=== PATIENT | male | born 1945 | race Caucasian/White ===

== ENCOUNTER 2016-10-31 10:33 | Emergency (ER) | payer MEDICARE, OTHER ==
[~2016-10-31] VITALS: Ht 167.6 cm; Wt 105.0 kg
[~2016-10-31 10:33] MED LIST: ASPI1TAB7 PO; ATEN-102 PO; CLOP75 PO; GLIP10TA6 PO; HYDR-2768 PO; INDO25 PO; ISOS60 PO; METHO500 PO; MOBI15TA PO; OMEG100037 PO; PAXI30TA7 PO; PROT40TA PO; REME45TA PO; ROSU40 PO; TERA1CAP3 PO; VITA-83 PO; VITA10002 PO; WAL-10TA2 PO; ZOLP10TA3 PO
[2016-10-31 10:34] VITALS: BP 140/68; PULSE 87; RESP 17; TEMP 98.4; O2SAT 97
--- NOTE | 2016-10-31 10:44 | PD ---
HPI . Right leg redness, itching and mild swelling for 3 days Chief Complaint: Skin Problem Time Seen by Provider: 10:44 Travel History International Travel<30 days: No Contact w/Intl Traveler<30days: No Traveled to known affect area: No History of Present Illness HPI 71-year-old male with multiple medical problems here with complaints of right lower extremity itching, redness and slight swelling for 3 days. Patient does not recall any injury or event that may have caused this irritation to his lower extremity. He reports that on Wednesday of this past week he thinks he may have had a fever chills. He thought the redness would go away, but it still present. He admits to mildly elevated blood sugars ranging in the 160s. He has no other complaints. He is accompanied by his significant other [facility] Past Medical History Arthritis: Yes (KNEES, HIPS, ANKLES, HANDS) Anxiety: Yes Depression: Yes Heart Rhythm Problems: Yes Cancer: No Cardiovascular Problems: Yes (bypass, angina) High Cholesterol: Yes Chest Pain: Yes Congestive Heart Failure: Yes Cerebrovascular Accident: Yes (cva) Diabetes: Yes Diminished Hearing: Yes Deep Vein Thrombosis: Yes (PE'S) Endocrine: Yes Gastrointestinal Disorders: Yes (PT HAS HERNIA, NO REPAIR) Hypertension: Yes Immune Disorder: No Musculoskeletal: Yes Neurologic: Yes Reproductive: No Respiratory: Yes Immunizations Current: No Myocardial Infarction: Yes ([place] 1967,1996,2001) Past Surgical History Cardiac Surgery: Yes (CABG IN 1996,1998) Coronary Artery Bypass Graft: Yes (TWICE,FIRST 3 VESSELS AND 2ND HAD 2 VESSELS) Coronary Stent: Yes Oral Surgery: Yes (TEETH EXTRACTED SURGICALLY) Other Surgery: Yes Social History Alcohol Use: Yes (OCC) Tobacco Use: No Substance Use: No Allergies-Medications (Allergen,Severity, Reaction): Coded Allergies: No Known Allergies (Verified , 02/05/15) Reported Meds & Prescriptions Reported Meds & Active Scripts Active Clindamycin (Clindamycin HCl) 300 Mg Cap 300 Mg PO TID Mobic (Meloxicam) 15 Mg Tab 15 Mg PO DAILY PRN Protonix (Pantoprazole Sodium) 40 Mg Tabdr 40 Mg PO DAILY 14 Days Indocin 25 Mg Cap (Indomethacin) 25 Mg Cap 25 Mg PO Q8HR 7 Days Decreased dosing as tolerated to BID and then QD Reported Aspirin 81 mg Tab (Aspirin) 81 Mg Tab 81 Mg PO DAILY Atenolol 50 Mg Tab 50 Mg PO DAILY Vitamin C (Calcium Ascorbate) 500 Mg Tab 500 Mg PO BID Ambien 10 Mg Tab (Zolpidem Tartrate) 10 Mg Tab 5-10 Mg PO HS MAY TAKE WHOLE TAB IF HALF TAB INEFFECTIVE Remeron 45 mg (Mirtazapine) 45 Mg Tab 45 Mg PO HS Imdur 60 Mg (Isosorbide Mononitrate) 60 Mg Tabcr 90 Mg PO DAILY Glipizide 10 Mg Tab 20 Mg PO BID TAKE BEFORE MEALS Fish Oil 1000 mg ([place]-3 Fatty Acids) 1 Cap Cap 2,000 Mg PO BID MAY STORE IN FREEZER Crestor (Rosuvastatin Calcium) 40 Mg Tab 40 Mg PO HS Terazosin Hcl (Terazosin HCl) 1 Mg Cap 1 Mg PO HS Robaxin 500 Mg Tab (Methocarbamol) 500 Mg Tab 500 Mg PO TID PRN Loratadine 10 Mg Tab 10 Mg PO DAILY Hctz (Hydrochlorothiazide) 25 Mg Tab 25 Mg PO DAILY Vitamin B12 (Cyanocobalamin) 1,000 Mcg Tab 1,000 Mcg PO DAILY Paxil (Paroxetine HCl) 30 Mg Tab 30 Mg PO DAILY Plavix (Clopidogrel Bisulfate) 75 Mg Tab 75 Mg PO DAILY Review of Systems General / Constitutional: No: Fever Eyes: No: Visual changes HENT: No: Headaches Cardiovascular: No: Chest Pain or Discomfort Respiratory: No: Shortness of Breath Gastrointestinal: No: Abdominal Pain Genitourinary: No: Dysuria Musculoskeletal: No: Pain Skin: Positive Other (right leg cellulitis), No Rash Neurologic: No: Weakness Psychiatric: No: Depression Endocrine: No: Polydipsia Hematologic/Lymphatic: No: Easy Bruising Physical Exam Narrative GENERAL: AAO x 3, no acute distress, Well-nourished, well-developed patient. SKIN: Warm and dry. No visible rashes or bruising. right lower extremity, warm to touch, erythematous, no gross edema, no excoriations or wounds, spares the foot HEAD: Normocephalic and atraumatic. EYES: No scleral icterus. No injection or drainage. ENT: No nasal drainage noted. Mucous membranes pink. Airway patent. NECK: Supple, trachea midline. No JVD. CARDIOVASCULAR: Regular rate and rhythm without murmurs, gallops, or rubs. RESPIRATORY: Breath sounds equal bilaterally. No accessory muscle use. No rhonchi or rales. GASTROINTESTINAL: Abdomen soft, non-tender, nondistended. EXTREMITIES: No cyanosis or edema. pedal pulses intact BACK: No obvious deformity. NEURO: CN II-12 intact, sensation in right LE normal PSYCH: AAO x 3, normal affect. Data Data Last Documented VS Vital Signs Date Time Temp Pulse Resp B/P Pulse Ox O2 Delivery O2 Flow Rate FiO2 10/31/16 10:34 98.4 87 17 140/68 97 MDM Medical Decision Making Medical Screen Exam Complete: Yes Emergency Medical Condition: Yes Medical Record Reviewed: Yes Differential Diagnosis Right lower extremities cellulitis, stasis dermatitis, less likely DVT Narrative Course 71-year-old male here with complaints of right lower extremities redness, swelling and itching. On examination patient appears to have a right lower extremity cellulitis that is sparing his foot. There are no evidence of open wounds, drainage or abscess formation. Case has been discussed with Dr. Zacarias, who also examined the patient. We recommend a course of antibiotics for treatment on outpatient basis. We do not recommend labs etc, as patient is afebrile, VSS. NO signs of systemic infection. Advised if any worsening of condition or return to the nearest emergency department. Follow-up with primary care provider. Patient verbalized understanding of instructions, questions were answered, and thanked me for their care. I advised them if their condition worsens, please return to the nearest emergency room for further care. Diagnosis Primary Impression: Cellulitis of right leg without foot Patient Instructions: General Instructions Additional Instructions: [place] for worsening signs of infection which include fever, increased redness , increased warmth, purulent drainage, increased swelling or streaking. If any of these develop, please go to the nearest emergency room. Please return to emergency department if your symptoms return or worsen. Follow up with your primary care provider. Take medications as prescribed. Med/Other Pt SpecificInfo: Prescription(s) given Scripts Clindamycin 300 Mg [id number] Mg PO TID #21 CAP Prov:Cara Zacarias MD 10/31/16 Disposition: 01 DISCHARGE HOME Condition: Stable Cherie Lange Oct 31, 2016 10:44
[2016-10-31] MEDS ORDERED: CLIN1CAP6 PO (10:53)
[2016-10-31] MEDS ORDERED: IPRAAER INH (11:25)
[2016-10-31] MEDS ORDERED: ASPI1TAB91 PO (11:25)
[2016-10-31] MEDS ORDERED: OMEP20TA PO (11:25)
[2016-10-31] MEDS ORDERED: CLAR10TA7 PO (11:25)
[2016-10-31] MEDS ORDERED: ALLO100 PO (11:25)
[2016-10-31] MEDS ORDERED: REME45TA PO (11:25)
[2016-10-31] MEDS ORDERED: LISI40TA PO (11:25)
[2016-10-31] MEDS ORDERED: FISH100020 PO (11:25)
[2016-10-31] MEDS ORDERED: ISOS60TA PO (11:25)
[2016-10-31] MEDS ORDERED: DICL1GEL7 TOPICAL (11:25)
[2016-10-31] MEDS ORDERED: GLUC10TA3 PO (11:25)
[2016-10-31] MEDS ORDERED: METO2.5T PO (11:25)
[2016-10-31] MEDS ORDERED: METO100T9 PO (11:25)
[2016-10-31] MEDS ORDERED: PAXI10TA2 PO (11:25)
[2016-10-31] MEDS ORDERED: NOVONP2 SQ ×2 (11:25)
[2016-10-31] MEDS ORDERED: PLAV75TA29 PO (11:25)
[2016-10-31] MEDS ORDERED: TERA2CAP3 PO (11:25)
[2016-10-31] MEDS ORDERED: FURO1TAB60 PO (11:25)
[2016-10-31] MEDS ORDERED: ROSU40 PO (11:25)
[2016-10-31] MEDS ORDERED: VITA10002 PO (11:25)
== END 2016-10-31 11:22 | disposition home or self-care (01) ==
LOC: NEPD 10:33
DX: L03.115 Cellulitis of right lower limb (principal); I50.9 Heart failure, unspecified; E11.9 Type 2 diabetes mellitus without complications; I11.0 Hypertensive heart disease with heart failure; H91.90 Unspecified hearing loss, unspecified ear; E78.00 Pure hypercholesterolemia, unspecified; Z86.718 Personal history of other venous thrombosis and embolism; I25.2 Old myocardial infarction; Z95.1 Presence of aortocoronary bypass graft; Z79.82 Long term (current) use of aspirin
CPT/HCPCS: 99283

== ENCOUNTER 2017-01-17 10:23 | Inpatient (IN) | payer OTHER ==
[~2017-01-17] VITALS: Ht 167.6 cm; Wt 106.1 kg
[~2017-01-17 10:23] MED LIST changes: +ALLO100 PO; -ASPI1TAB7 PO; +ASPI1TAB91 PO; -ATEN-102 PO; +CLAR10TA7 PO; +CLIN1CAP6 PO; -CLOP75 PO; +DICL1GEL7 TOPICAL; +FISH100020 PO; +FURO1TAB60 PO; -GLIP10TA6 PO; +GLUC10TA3 PO; -HYDR-2768 PO; -INDO25 PO; +IPRAAER INH; -ISOS60 PO; +ISOS60TA PO; +LISI40TA PO; -METHO500 PO; +METO100T9 PO; +METO2.5T PO; -MOBI15TA PO; +NOVONP2 SQ; -OMEG100037 PO; +OMEP20TA PO; +PAXI10TA2 PO; -PAXI30TA7 PO; +PLAV75TA29 PO; -PROT40TA PO; -TERA1CAP3 PO; +TERA2CAP3 PO; -VITA-83 PO; -WAL-10TA2 PO; -ZOLP10TA3 PO
[2017-01-17 10:26] VITALS: BP 165/75; PULSE 74; RESP 13; TEMP 98; O2SAT 95
[2017-01-17] MEDS ORDERED: ATOR1TAB18 PO (10:44)
[2017-01-17] MEDS ORDERED: SODIUM CHLOR 0.9% 1000 ML INJ 1,000 ML IV SCH (11:07)
--- NOTE | 2017-01-17 11:10 | PD ---
HPI Chief Complaint: Facial Pain or Swelling Time Seen by Provider: 11:00 Travel History International Travel<30 days: No Contact w/Intl Traveler<30days: No Traveled to known affect area: No History of Present Illness HPI 71-year-old male with history of coronary artery disease, CVA, hypertension, diabetes, chronic kidney disease, presents for evaluation of facial pain and swelling. Symptoms started 3-4 days ago as swelling to the left ear and since then the swelling and redness has rapidly progressed to the left cheek, nose and now starting to involve the right cheek region. He endorses pain, aching, constant, worse with palpation. Denies any facial trauma, fevers or chills. He reports chronic cough and congestion but denies any acute cough, sore throat. [facility] No other complaints at this time. PFSH Past Medical History Arthritis: Yes Anxiety: Yes Depression: Yes Heart Rhythm Problems: Yes Cancer: No Cardiac Catheterization: Yes (TRIPLE BYPASS) Cardiovascular Problems: Yes High Cholesterol: Yes Chest Pain: Yes Congestive Heart Failure: Yes Cerebrovascular Accident: Yes Coronary Artery Disease: Yes Diabetes: Yes Patient Takes Glucophage: Yes Diminished Hearing: Yes Deep Vein Thrombosis: Yes (PE'S) Endocrine: Yes Gastrointestinal Disorders: Yes (PT HAS HERNIA, NO REPAIR) Gout: Yes Hiatal Hernia: Yes Hypertension: Yes Immune Disorder: No Insomnia: Yes Musculoskeletal: Yes Neurologic: Yes Psychiatric: Yes (PTSD) Reproductive: No Respiratory: Yes Immunizations Current: No Myocardial Infarction: Yes Tetanus Vaccination: < 5 Years Influenza Vaccination: No Past Surgical History Cardiac Surgery: Yes (CABG IN 1996,1998) Coronary Artery Bypass Graft: Yes (TWICE,FIRST 3 VESSELS AND 2ND HAD 2 VESSELS) Coronary Stent: Yes Oral Surgery: Yes (TEETH EXTRACTED SURGICALLY) Other Surgery: Yes Social History Alcohol Use: Yes ("2-3 BEERS PER DAY") Tobacco Use: No Substance Use: No Allergies-Medications (Allergen,Severity, Reaction): Coded Allergies: No Known Allergies (Verified , 01/17/17) Reported Meds & Prescriptions Reported Meds & Active Scripts Active Reported Atorvastatin (Atorvastatin Calcium) 80 Mg Tab 80 Mg PO HS Terazosin (Terazosin HCl) 2 Mg Cap 2 Mg PO HS Paxil (Paroxetine HCl) 10 Mg Tab 10 Mg PO DAILY Omeprazole 20 Mg Tab 20 Mg PO DAILY Take 30 minutes before a meal Remeron (Mirtazapine) 45 Mg Tab 45 Mg PO HS Metoprolol Succinate ER 24 HR (Metoprolol Succinate) 100 Mg Tab 100 Mg PO DAILY Metolazone 2.5 Mg Tab 2.5 Mg PO EVERY OTHER DAY Take 1/2hr before furosemide Claritin (Loratadine) 10 Mg Tablet 10 Mg PO DAILY Lisinopril 40 Mg Tab 40 Mg PO DAILY Isosorbide Mononitrate ER (Isosorbide Mononitrate) 60 Mg Tab 30 Mg PO DAILY Novolin N Inj (Insulin Human NPH) 100 Unit/Ml Inj 50 Units SQ DAILY IN THE AM Novolin N Inj (Insulin Human NPH) 100 Unit/Ml Inj 55 Units SQ DAILY IN THE PM Glucotrol (Glipizide) 10 Mg Tab 10 Mg PO BID Take 30 minutes before a meal Lasix (Furosemide) 40 Mg Tab 40 Mg PO DAILY Fish Oil 1000 mg ([place]-3 Fatty Acids) 1 Cap Cap 1,000 Mg PO BID Diclofenac Topical 1% Gel 1 Applic TOPICAL QID Vitamin B-12 (Cyanocobalamin) 1,000 Mcg Tab 1,000 Mcg PO HS Plavix (Clopidogrel Bisulfate) 75 Mg Tab 75 Mg PO DAILY Aspirin Adult Low Strength (Aspirin) 81 Mg Tabdr 81 Mg PO DAILY Zyloprim (Allopurinol) 100 Mg Tab 100 Mg PO DAILY Review of Systems Except as stated in HPI: all other systems reviewed are Neg Physical Exam Narrative GENERAL: Well-developed well-nourished male in no acute distress SKIN: Warm and dry. Examination reveals induration and erythema to the left cheek, ear auricle, nose, taoism, without vesicle formation, fluctuance, drainage. Generalized tenderness to palpation. HEAD: Atraumatic. Normocephalic. EYES: Pupils equal and round. No scleral icterus. No injection or drainage. ENT: No nasal bleeding or discharge. Mucous membranes pink and moist. Skin as noted above with edema and erythema to the left ear auricle. The external ear canal itself appears normal. NECK: Trachea midline. No JVD. CARDIOVASCULAR: Regular rate and rhythm. No murmur appreciated. RESPIRATORY: No accessory muscle use. Clear to auscultation. Breath sounds equal bilaterally. GASTROINTESTINAL: Abdomen soft, non-tender, nondistended. Hepatic and splenic margins not palpable. MUSCULOSKELETAL: No obvious deformities. No edema. NEUROLOGICAL: Awake and alert. No obvious cranial nerve deficits. Motor grossly within normal limits. Normal speech. PSYCHIATRIC: Appropriate mood and affect; insight and judgment normal. Data Data Last Documented VS Vital Signs Date Time Temp Pulse Resp B/P (MAP) Pulse Ox O2 Delivery O2 Flow Rate FiO2 01/17/17 12:37 67 18 159/76 (103) 92 Room Air 01/17/17 10:26 98.0 Orders Orders Complete Blood Count With Diff (01/17/17 11:07) Comprehensive Metabolic Panel (01/17/17 11:07) Prothrombin Time / Inr (Pt) (01/17/17 11:07) Act Partial Throm Time (Ptt) (01/17/17 11:07) Lactic Acid Sepsis Protocol (01/17/17 11:07) Blood Culture (01/17/17 11:07) Ecg Monitoring (01/17/17 11:07) Iv Access Insert/Monitor (01/17/17 11:07) Oximetry (01/17/17 11:07) Oxygen Administration (01/17/17 11:07) Sodium Chlor 0.9% 1000 Ml Inj (Ns 1000 M (01/17/17 11:07) Morphine Inj (Morphine Inj) (01/17/17 11:15) Ondansetron Inj (Zofran Inj) (01/17/17 11:15) Ct Facial Bones W/O Iv Cont (01/17/17 ) Vancomycin Inj (Vancomycin Inj) (01/17/17 13:30) Ciprofloxacin 400 Mg Premix (Cipro 400 M (01/17/17 13:30) Chest, Single Ap (01/17/17 ) Admit Order (Ed Use Only) (01/17/17 14:02) Labs Laboratory Tests Test 01/17/17 11:25 01/17/17 11:30 White Blood Count 6.9 TH/MM3 Red Blood Count 4.80 MIL/MM3 Hemoglobin 14.2 GM/DL Hematocrit 42.7 % Mean Corpuscular Volume 88.9 FL Mean Corpuscular Hemoglobin 29.5 PG Mean Corpuscular Hemoglobin Concent 33.2 % Red Cell Distribution Width 15.3 % Platelet Count 180 TH/MM3 Mean Platelet Volume 7.6 FL Neutrophils (%) (Auto) 69.6 % Lymphocytes (%) (Auto) 14.9 % Monocytes (%) (Auto) 11.9 % Eosinophils (%) (Auto) 3.1 % Basophils (%) (Auto) 0.5 % Neutrophils # (Auto) 4.8 TH/MM3 Lymphocytes # (Auto) 1.0 TH/MM3 Monocytes # (Auto) 0.8 TH/MM3 Eosinophils # (Auto) 0.2 TH/MM3 Basophils # (Auto) 0.0 TH/MM3 CBC Comment DIFF FINAL Differential Comment Prothrombin Time 10.0 SEC Prothromb Time International Ratio 0.9 RATIO Activated Partial Thromboplast Time 25.3 SEC Blood Urea Nitrogen 54 MG/DL Creatinine 2.29 MG/DL Random Glucose 235 MG/DL Total Protein 6.8 GM/DL Albumin 3.1 GM/DL Calcium Level 8.6 MG/DL Alkaline Phosphatase 69 U/L Aspartate Amino Transf (AST/SGOT) 26 U/L Alanine Aminotransferase (ALT/SGPT) 42 U/L Total Bilirubin 0.8 MG/DL Sodium Level 136 MEQ/L Potassium Level 4.5 MEQ/L Chloride Level 101 MEQ/L Carbon Dioxide Level 29.0 MEQ/L Anion Gap 6 MEQ/L Estimat Glomerular Filtration Rate 28 ML/MIN Lactic Acid Level 1.3 mmol/L [facility] Medical Decision Making Medical Screen Exam Complete: Yes Emergency Medical Condition: Yes Medical Record Reviewed: Yes Differential Diagnosis Facial cellulitis, malignant otitis externa, erysipelas, less likely shingles Narrative Course The patient has what appears to be extensive facial cellulitis as well as swelling and induration to the left ear auricle, certainly concerning for malignant otitis externa given his history of diabetes. Less likely is early shingles as there is no vesicle formation and appears to be extending into the right cheek region now as well. Laboratory dysmenorrhea. BUN 54, creatinine 2.29, GFR 28 which is worse than his baseline chronic kidney disease. Therefore the CT of the face was changed to without contrast. CBC is unremarkable. Likely acid is negative. Given the rapid progression of the patient's cellulitic changes and his history of diabetes, localized infection of the face, the plan will be to admit the patient for observation for IV antibiotics. He was given IV vancomycin as well as IV ciprofloxacin for pseudomonas coverage. He is agreeable to admission. The patient was also noted to have a low oxygen saturation around 90-93% on room air, denies dyspnea, lungs are clear to auscultation, he was placed on 2 L nasal cannula and his oxygen saturation improved to 95%. Chest x-ray pending. Diagnosis Primary Impression: Facial cellulitis Additional Impression: Acute kidney injury Admitting Information Admitting Physician Requests: Observation Jeffery Lam Jan 17, 2017 11:10
[2017-01-17] MEDS ORDERED: MORPHINE SULFATE 4 MG/ML INJ IV PUSH ONE (11:15)
[2017-01-17] MEDS ORDERED: ONDANSETRON HCL 4 MG/2 ML VIAL IV PUSH ONE (11:15)
[2017-01-17 11:39] VITALS: RESP 18; O2SAT 93
[2017-01-17 11:55] LABS: AUTOMATED NEUTROPHIL # 4.8 TH/MM3 (1.8-7.7); BASOPHIL % 0.5 % (0.0-2.0); EOSINOPHIL # 0.2 TH/MM3 (0-0.4); EOSINOPHIL % 3.1 % (0.0-4.0); HEMATOCRIT 42.7 % (39.0-51.0); HEMO FLAGS DIFF FINAL; LYMPH % 14.9 % (9.0-44.0); MEAN CELL VOLUME 88.9 FL (80.0-100.0); MEAN CORPUSCULAR HEMOGLOBIN 29.5 PG (27.0-34.0); MEAN CORPUSCULAR HGB CONC 33.2 % (32.0-36.0); MONO % 11.9 % (0.0-8.0); NEUT % 69.6 % (16.0-70.0); PLATELET COUNT 180 TH/MM3 (150-450); RED CELL DISTRIBUTION WIDTH 15.3 % (11.6-17.2); WHITE BLOOD COUNT 6.9 TH/MM3 (4.0-11.0)
[2017-01-17 12:05] LABS: APTT (PATIENT) 25.3 SEC (24.3-30.1); INTERNATIONAL NORMALIZED RATIO 0.9 RATIO
[2017-01-17 12:19] LABS: ALT (GPT) 42 U/L (12-78); ANION GAP 6 MEQ/L (5-15); AST (GOT) 26 U/L (15-37); BLOOD UREA NITROGEN 54 MG/DL (7-18); CHLORIDE 101 MEQ/L (98-107); GLOMERULAR FILTRATION RATE 28 ML/MIN (>89); POTASSIUM 4.5 MEQ/L (3.5-5.1); SODIUM (NA) 136 MEQ/L (136-145)
[2017-01-17 12:22] LABS: ALKALINE PHOSPHATASE 69 U/L (45-117); TOTAL BILIRUBIN ADULT 0.8 MG/DL (0.2-1.0)
[2017-01-17 12:37] VITALS: BP 159/76; PULSE 67; RESP 18; O2SAT 92
--- NOTE | 2017-01-17 13:23 | RADRPT ---
EXAM DATE/TIME: 01/17/2017 12:55 [facility] COMPARISON: CT PULMONARY ANGIOGRAM, November 13, 2013, 14:16. INDICATIONS : Left facial swelling. RADIATION DOSE: 36.7 CTDIvol (mGy) MEDICAL HISTORY : Cardiovascular disease. Hypertension. SURGICAL HISTORY : None. ENCOUNTER: Initial ACUITY: 4 - 6 days PAIN SCORE: 7/10 LOCATION: Left facial TECHNIQUE: Volumetric scanning of the facial bones was performed. Using automated exposure control and adjustme nt of the mA and/or kV according to patient size, radiation dose was kept as low as reasonably achiev able to obtain optimal diagnostic quality images. DICOM format image data is available [email or web address] y for review and comparison. FINDINGS: ORBITS: The orbital and infraorbital osseous structures are intact. The retroconal structures have a normal configuration. No radiopaque foreign bodies are seen. NASAL BONE: The nasal bone and maxillary spine are intact ZYGOMATIC ARCHES: Symmetric without evidence of fracture. SINUSES: The maxillary, ethmoid and frontal sinuses are intact. No air-fluid levels seen. NASAL CAVITY: The nasal septum is intact and midline. The lacrimal ducts are intact. SOFT TISSUES: No radiopaque foreign bodies seen. No soft-tissue swelling is seen. INTRACRANIAL: No intracranial air seen. CRIBIFORM PLATE: Grossly intact. CONCLUSION: 1. Negative examination. Thierry Louis MD on January 17, 2017 at 13:20 Board Certified Radiologist. This report was verified electronically.
[2017-01-17] MEDS ORDERED: VANCOMYCIN INJ 1,000 MG in SODIUM CHLOR 0.9% 250 ML INJ 250 ML IV ONE (13:30)
[2017-01-17] MEDS ORDERED: CIPROFLOXACIN 400 MG PREMIX 200 ML IV ONE (13:30)
[2017-01-17 15:02] VITALS: BP 125/63; PULSE 62; RESP 18; O2SAT 95
--- NOTE | 2017-01-17 15:11 | RADRPT ---
EXAM DATE/TIME: 01/17/2017 14:47 [facility] COMPARISON: KNEE RIGHT COMPLETE (4VWS), February 05, 2015, 11:03. CHEST PA & LAT, January 26, 2015, 15:46. INDICATIONS : Short of Breath MEDICAL HISTORY : Cardiovascular disease. Hypertension. SURGICAL HISTORY : None. ENCOUNTER: Initial ACUITY: 4 - 6 days PAIN SCORE: 7/10 LOCATION: Bilateral chest FINDINGS: The heart is mildly enlarged. The patient is post median sternotomy. The superiormost sternal wire is no longer intact. The lungs are clear. The bony structures are intact. CONCLUSION: 1. Cardiomegaly. The lungs are clear. Stable compared to prior dated 01/26/15. Thierry Louis MD on January 17, 2017 at 15:10 Board Certified Radiologist. This report was verified electronically.
[2017-01-17] MEDS ORDERED: PILL SPLITTER OTHER PRN (15:15)
[2017-01-17] MEDS ORDERED: NALOXONE HCL 0.4 MG/ML AMP IV PUSH PRN (15:15)
[2017-01-17] MEDS ORDERED: ACETAMINOPHEN 325 MG TAB PO PRN ×2 (15:15)
[2017-01-17] MEDS ORDERED: SODIUM CHLORIDE 0.9% FLUSH 10 ML FLUSH IV FLUSH PRN (15:15)
[2017-01-17] MEDS ORDERED: ONDANSETRON HCL 4 MG/2 ML VIAL IVP PRN (15:15)
[2017-01-17] MEDS ORDERED: DEXTROSE 50% IN WATER 50 ML VIAL(D50) IV PUSH PRN (15:30)
[2017-01-17] MEDS ORDERED: GLUCAGON 1 MG/ML VIAL OTHER PRN (15:30)
[2017-01-17] MEDS ORDERED: Vancomycin Consult Pharmacy 1 EA OTHER SCH (15:45)
--- NOTE | 2017-01-17 15:47 | HHI.HP ---
[facility] Physician [facility] Admission Diagnosis facial cellulitis Diagnoses: Chief Complaint: Facial swelling Travel History International Travel<30 Days: No Contact w/Intl Traveler <30 Da: No Traveled to Known Affected Are: No History of Present Illness The patient is a 71-year-old male with a past medical history of CAD and diabetes who is presenting to the hospital with facial swelling. He says his symptoms started 3 or 4 days ago. He initially noticed swelling and redness around his left ear. He says he has had a severe ear infection last year which was treated with antibiotics. He says his left ear was swollen and eventually that swelling and redness started to spread across his face. He first noticed a go to his left side of his forehead and then it went to the left cheek and nose area. He also says it went down to his jaw on the left side. He describes a sore sensation throughout that side of the face. He rates his pain at a 4 out of 10 in severity. He denies any visual changes. He denies any difficulty with breathing. He says that he is swallowing and eating without problems. He says that the swelling has progressed throughout the day today. He says the pain medication he received in the emergency department did help. He denies any fever. He has not had any episodes of sweating. He did not take any medications for this at home. The patient also mentions that his legs tend to swell, with the right leg swelling more than the left leg. 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) HTN HLP Depression PE DM CKD Urinary incontinence Gout Liver problems Allergies: Coded Allergies: No Known Allergies (Verified , 01/17/17) Active Ordered Medications Current Medications Medications (Trade) Dose Ordered Sig/Nabila Route Start Time Stop Time Status Last Admin (Zyloprim) 100 mg DAILY PO 01/18/17 09:00 (Ecotrin Ec) 81 mg DAILY PO 01/18/17 09:00 (Lipitor) 80 mg HS PO 01/17/17 21:00 (Plavix) 75 mg DAILY PO 01/18/17 09:00 (Imdur) 30 mg DAILY PO 01/18/17 09:00 (Hytrin) 2 mg HS PO 01/17/17 21:00 (Toprol Xl) 100 mg DAILY PO 01/18/17 09:00 (Remeron) 45 mg HS PO 01/17/17 21:00 (Protonix) 20 mg DAILY PO 01/18/17 09:00 (Paxil) 10 mg DAILY PO 01/18/17 09:00 (NovoLIN N INJ) 20 units BID@08,17 SQ 01/17/17 17:00 (NovoLOG SUPPLEMENTAL SCALE) 1 ACHS SLIDING SCALE SQ 01/17/17 17:00 (NS Flush) 2 ml UNSCH PRN IV FLUSH 01/17/17 15:15 (NS Flush) 2 ml BID IV FLUSH 01/17/17 21:00 (Tylenol) 650 mg Q4H PRN PO 01/17/17 15:15 (Zofran Inj) 4 mg Q6H PRN IVP 01/17/17 15:15 (Heparin Inj) 5,000 units Q8H SQ 01/17/17 16:00 (Tylenol) 650 mg Q6H PRN PO 01/17/17 15:15 (Roxicodone) 10 mg Q4H PRN PO 01/17/17 15:15 (Roxicodone) 5 mg Q4H PRN PO 01/17/17 15:15 (Narcan Inj) 0.4 mg UNSCH PRN IV PUSH 01/17/17 15:15 (Bonnie-Colace) 1 tab BID PO 01/17/17 21:00 (Pill Splitter) 1 ea UNSCH PRN OTHER 01/17/17 15:15 (D50w (Vial) Inj) 50 ml UNSCH PRN IV PUSH 01/17/17 15:30 (Glucagon Inj) 1 mg UNSCH PRN OTHER 01/17/17 15:30 Vancomycin HCl 1600 mg/Sodium Chloride 516 ml @ 250 mls/hr DAILY IV 01/18/17 09:00 UNV Pharmacy Profile Note 0 ml @ 0 mls/hr UNSCH OTHER 01/17/17 15:45 UNV Family History DM CAD Social History The pt quit smoking 30 years ago. He drinks beer socially. Physical Exam Vital Signs Vital Signs Date Time Temp Pulse Resp B/P (MAP) Pulse Ox O2 Delivery O2 Flow Rate FiO2 01/17/17 15:02 62 18 125/63 (83) 95 Nasal Cannula 2.00 01/17/17 14:55 18 01/17/17 12:37 67 18 159/76 (103) 92 Room Air 01/17/17 11:39 18 93 Room Air 01/17/17 10:36 71 18 01/17/17 10:26 98.0 74 13 165/75 (105) 95 Physical Exam GENERAL: Well-developed, well-nourished male in no acute distress. SKIN: Warm and dry. Examination reveals induration and erythema to the left cheek, ear auricle, nose, protestant, without vesicle formation, fluctuance, drainage. Mild tenderness to palpation. HEAD: Atraumatic. Normocephalic. EYES: Pupils equal and round. No scleral icterus. No injection or drainage. ENT: No nasal bleeding or discharge. Mucous membranes pink and moist. Skin as noted above with edema and erythema to the left ear auricle. The external ear canal itself appears normal. Erythema noted internally. NECK: Trachea midline. No JVD. CARDIOVASCULAR: Distant heart sounds. Regular rate and rhythm. No murmur appreciated. RESPIRATORY: No accessory muscle use. Clear to auscultation. Breath sounds equal bilaterally. GASTROINTESTINAL: Abdomen soft, non-tender, nondistended. Hepatic and splenic margins not palpable. MUSCULOSKELETAL: No obvious deformities. 1+ edema in the LEs, R > L. NEUROLOGICAL: Awake and alert. No obvious cranial nerve deficits. Motor grossly within normal limits. Normal speech. PSYCHIATRIC: Appropriate mood and affect; insight and judgment normal. Laboratory Laboratory Tests Test 01/17/17 11:25 01/17/17 11:30 White Blood Count 6.9 Red Blood Count 4.80 Hemoglobin 14.2 Hematocrit 42.7 Mean Corpuscular Volume 88.9 Mean Corpuscular Hemoglobin 29.5 Mean Corpuscular Hemoglobin Concent 33.2 Red Cell Distribution Width 15.3 Platelet Count 180 Mean Platelet Volume 7.6 Neutrophils (%) (Auto) 69.6 Lymphocytes (%) (Auto) 14.9 Monocytes (%) (Auto) 11.9 Eosinophils (%) (Auto) 3.1 Basophils (%) (Auto) 0.5 Neutrophils # (Auto) 4.8 Lymphocytes # (Auto) 1.0 Monocytes # (Auto) 0.8 Eosinophils # (Auto) 0.2 Basophils # (Auto) 0.0 CBC Comment DIFF FINAL Differential Comment Prothrombin Time 10.0 Prothromb Time International Ratio 0.9 Activated Partial Thromboplast Time 25.3 Blood Urea Nitrogen 54 Creatinine 2.29 Random Glucose 235 Total Protein 6.8 Albumin 3.1 Calcium Level 8.6 Alkaline Phosphatase 69 Aspartate Amino Transf (AST/SGOT) 26 Alanine Aminotransferase (ALT/SGPT) 42 Total Bilirubin 0.8 Sodium Level 136 Potassium Level 4.5 Chloride Level 101 Carbon Dioxide Level 29.0 Anion Gap 6 Estimat Glomerular Filtration Rate 28 Lactic Acid Level 1.3 Date/Time Source Procedure Growth Status 01/17/17 11:30 Blood Peripheral Aerobic Blood Culture Pending Received 01/17/17 11:30 Blood Peripheral Anaerobic Blood Culture Pending Received Result Diagram: 01/17/17 1125 01/17/17 1125 Imaging Last Impressions Maxillofacial CT 01/17/17 0000 Signed Impressions: Service Date/Time: Tuesday, January 17, 2017 12:55 - CONCLUSION: 1. Negative examination. Thierry Louis MD Chest X-Ray 01/17/17 0000 Signed Impressions: Service Date/Time: Tuesday, January 17, 2017 14:47 - CONCLUSION: 1. Cardiomegaly. The lungs are clear. Stable compared to prior dated 01/26/15. MD Diya Franciscoi VTE Risk Assessment Caprini VTE Risk Assessment: Mod/High Risk (score >= 2) Caprini Risk Assessment Model Point Value = 1 Point Value = 2 Point Value = 3 Point Value = 5 Age 41-60 Minor surgery BMI > 25 kg/m2 Swollen legs Varicose veins or History of unexplained or recurrent spontaneous Oral contraceptives or hormone replacement Sepsis (< 1 month) Serious lung disease, including pneumonia (< 1 month) Abnormal pulmonary function Acute myocardial infarction Congestive heart failure (< 1 month) History of inflammatory bowel disease Medical patient at bed rest Age 61-74 Arthroscopic surgery Major open surgery (> 45 min) Laparoscopic surgery (> 45 min) Malignancy Confined to bed (> 72 hours) Immobilizing plaster cast Central venous access Age >= 75 History of VTE Family history of VTE Factor V Leiden Prothrombin [id number] Lupus anticoagulant Anticardiolipin antibodies Elevated serum homocysteine Heparin-induced thrombocytopenia Other congenital or acquired thrombophilia Stroke (< 1 month) Elective arthroplasty Hip, pelvis, or leg fracture Acute spinal cord injury (< 1 month) Prophylaxis Regimen Total Risk Factor Score Risk Level Prophylaxis Regimen 0-1 Low Early ambulation 2 Moderate Order ONE of the following: *Sequential Compression Device (SCD) *Heparin 5000 units SQ BID 3-4 Higher Order ONE of the following medications: *Heparin 5000 units SQ TID *Enoxaparin/Lovenox 40 mg SQ daily (WT < 150 kg, CrCl > 30 mL/min) *Enoxaparin/Lovenox 30 mg SQ daily (WT < 150 kg, CrCl > 10-29 mL/min) *Enoxaparin/Lovenox 30 mg SQ BID (WT < 150 kg, CrCl > 30 mL/min) AND/OR *Sequential Compression Device (SCD) 5 or more Highest Order ONE of the following medications: *Heparin 5000 units SQ TID (Preferred with Epidurals) *Enoxaparin/Lovenox 40 mg SQ daily (WT < 150 kg, CrCl > 30 mL/min) *Enoxaparin/Lovenox 30 mg SQ daily (WT < 150 kg, CrCl > 10-29 mL/min) *Enoxaparin/Lovenox 30 mg SQ BID (WT < 150 kg, CrCl > 30 mL/min) AND *Sequential Compression Device (SCD) Assessment and Plan Assessment and Plan Facial cellulitis Ongoing for 3-4 days prior to admission. Initially involved the left ear, but spread to the left forehead, eyelid, nose, cheek and jaw. No visual impairment or difficulty swallowing or breathing. Received IV vancomycin and Cipro in the ED. CT maxillofacial with no acute abnormalities. Exam reveals erythema and swelling. Appears similar to cellulitis vs an allergic reaction. No vesicles or purulence noted. - continue IV Cipro and IV vancomycin. Renally dosed. - check ESR and CRP. - pain control with a bowel regimen. - consult infectious disease. - blood cultures x 2. DM On insulin as an outpt. - hold home PO meds. - resume NPH BID at a lower dose. - insulin sliding scale. CAD S/p CABG x 2 and stents. Has chronic leg swelling. - hold diuretics in light of renal function. - resume other home meds. Acute on chronic renal failure Likely secondary to diuretics. - Hold diuretics and monitor BMP. PPx: Heparin Code Status Full Discussed Condition With Jeffery Lam, pt, pt's family Physician Certification 2 Midnight Certification Type: Admission for Inpatient Services Order for Inpatient Services The services are ordered in accordance with Medicare regulations or non- Medicare payer requirements, as applicable. In the case of services not specified as inpatient-only, they are appropriately provided as inpatient services in accordance with the 2-midnight benchmark. Estimated LOS (days): 2 days is the estimated time the patient will need to remain in the hospital, assuming treatment plan goals are met and no additional complications. Post-Hospital Plan: Not yet determined Jos Kurtz DO Jan 17, 2017 15:47
[2017-01-17] MEDS: INSULIN HUMAN NPH 1,000 UNITS/10 ML VIAL SQ SCH (17:00)
[2017-01-17] MEDS: INSULIN ASPART SUPPLEMENTAL SCALE SQ SCH ×2 (17:00→21:00)
[2017-01-17 17:54] VITALS: BP 135/69; PULSE 62; RESP 18; O2SAT 94
[2017-01-17] MEDS: HEPARIN SODIUM - SQ 10,000 UNITS/ML VIAL SQ SCH ×2 (17:56→23:16)
[2017-01-17 20:00] VITALS: BP 120/56; PULSE 69; RESP 18; TEMP 97.7; O2SAT 93
[2017-01-17] MEDS: DOCUSATE SODIUM 50 MG/SENNA 8.6 MG TAB PO SCH (21:00)
[2017-01-17] MEDS: ATORVASTATIN 80 MG TAB PO SCH (21:10)
[2017-01-17] MEDS: TERAZOSIN HCL 1 MG CAP PO SCH (21:10)
[2017-01-17] MEDS: MIRTAZAPINE 15 MG TAB PO SCH (21:10)
[2017-01-17] MEDS: SODIUM CHLORIDE 0.9% FLUSH 10 ML FLUSH IV FLUSH SCH (21:11)
[2017-01-18] VITALS: BP 115/59; PULSE 66; RESP 18; TEMP 97.2; O2SAT 91
[2017-01-18 07:41] LABS: AUTOMATED NEUTROPHIL # 4.1 TH/MM3 (1.8-7.7); BASOPHIL % 0.5 % (0.0-2.0); EOSINOPHIL # 0.3 TH/MM3 (0-0.4); EOSINOPHIL % 5.4 % (0.0-4.0); HEMATOCRIT 42.3 % (39.0-51.0); HEMO FLAGS DIFF FINAL; LYMPH % 16.4 % (9.0-44.0); LYMPHOCYTE # 1.1 TH/MM3 (1.0-4.8); MEAN CELL VOLUME 90.2 FL (80.0-100.0); MEAN CORPUSCULAR HEMOGLOBIN 29.7 PG (27.0-34.0); MEAN CORPUSCULAR HGB CONC 32.9 % (32.0-36.0); NEUT % 63.7 % (16.0-70.0); PLATELET COUNT 177 TH/MM3 (150-450); RED BLOOD COUNT 4.69 MIL/MM3 (4.50-5.90); RED CELL DISTRIBUTION WIDTH 15.6 % (11.6-17.2); WHITE BLOOD COUNT 6.5 TH/MM3 (4.0-11.0)
[2017-01-18 08:00] VITALS: BP 144/67; PULSE 64; RESP 18; TEMP 96.2; O2SAT 91
[2017-01-18] MEDS: INSULIN ASPART SUPPLEMENTAL SCALE SQ SCH ×4 (08:00→21:33)
[2017-01-18 08:16] LABS: ALKALINE PHOSPHATASE 63 U/L (45-117); ALT (GPT) 39 U/L (12-78); ANION GAP 6 MEQ/L (5-15); AST (GOT) 26 U/L (15-37); BICARBONATE 29.6 MEQ/L (21.0-32.0); BLOOD UREA NITROGEN 43 MG/DL (7-18); CHLORIDE 105 MEQ/L (98-107); GLOMERULAR FILTRATION RATE 32 ML/MIN (>89); POTASSIUM 4.3 MEQ/L (3.5-5.1); SODIUM (NA) 141 MEQ/L (136-145); TOTAL BILIRUBIN ADULT 0.7 MG/DL (0.2-1.0)
[2017-01-18] MEDS: ISOSORBIDE MONONITRATE 30 MG TAB PO SCH (08:31)
[2017-01-18] MEDS: DOCUSATE SODIUM 50 MG/SENNA 8.6 MG TAB PO SCH ×2 (08:31→21:00)
[2017-01-18] MEDS: ALLOPURINOL 100 MG TAB PO SCH (08:31)
[2017-01-18] MEDS: HEPARIN SODIUM - SQ 10,000 UNITS/ML VIAL SQ SCH ×3 (08:31→21:33)
[2017-01-18] MEDS: CLOPIDOGREL 75 MG TAB PO SCH (08:32)
[2017-01-18] MEDS: ASPIRIN EC 81 MG TABEC PO SCH (08:32)
[2017-01-18] MEDS: METOPROLOL SUCCINATE 50 MG EXTENDED RELEASE TAB PO SCH (08:32)
[2017-01-18] MEDS: PARoxetine HCL 20 MG TAB PO SCH (08:32)
[2017-01-18] MEDS: PANTOPRAZOLE SOD 20 MG DELAYED RELEASE TAB PO SCH (08:32)
[2017-01-18] MEDS: SODIUM CHLORIDE 0.9% FLUSH 10 ML FLUSH IV FLUSH SCH ×2 (08:33→21:34)
[2017-01-18] MEDS: INSULIN HUMAN NPH 1,000 UNITS/10 ML VIAL SQ SCH ×2 (08:33→16:41)
[2017-01-18] MEDS ORDERED: CIPROFLOXACIN 400 MG PREMIX 200 ML IV SCH (09:00)
[2017-01-18] MEDS ORDERED: VANCOMYCIN INJ 1,600 MG in SODIUM CHLORID 0.9% 500 ML INJ 500 ML IV SCH (09:00)
--- NOTE | 2017-01-18 10:43 | HHI.PR ---
Subjective Remarks The patient says that he is feeling better on the left side of his face. He does say that the redness and swelling has started to spread to the right side of his face. He denies any difficulty swallowing. He is breathing comfortably. He reports no vision changes. Objective Vitals Vital Signs Date Time Temp Pulse Resp B/P (MAP) Pulse Ox O2 Delivery O2 Flow Rate FiO2 01/18/17 08:00 96.2 64 18 144/67 (92) 91 01/18/17 00:00 97.2 66 18 115/59 (77) 91 01/17/17 20:00 97.7 69 18 120/56 (77) 93 01/17/17 17:54 62 18 135/69 (91) 94 Nasal Cannula 2.00 01/17/17 15:02 62 18 125/63 (83) 95 Nasal Cannula 2.00 01/17/17 14:55 18 01/17/17 12:37 67 18 159/76 (103) 92 Room Air 01/17/17 11:39 18 93 Room Air I/O 01/17/17 01/17/17 01/17/17 01/18/17 01/18/17 01/18/17 07:00 15:00 23:00 07:00 15:00 23:00 Intake Total 1000 ml 450 ml 200 ml Output Total 400 ml Balance 1000 ml 50 ml 200 ml Intake IV Total 1000 ml 450 ml 200 ml Output Urine Total 400 ml Result Diagram: 01/18/17 0630 01/18/17 0630 Imaging Last Impressions Maxillofacial CT 01/17/17 0000 Signed Impressions: Service Date/Time: Tuesday, January 17, 2017 12:55 - CONCLUSION: 1. Negative examination. Thierry Louis MD Chest X-Ray 01/17/17 0000 Signed Impressions: Service Date/Time: Tuesday, January 17, 2017 14:47 - CONCLUSION: 1. Cardiomegaly. The lungs are clear. Stable compared to prior dated 01/26/15. Thierry Louis MD Objective Remarks GENERAL: Well-developed, well-nourished male in no acute distress. SKIN: Warm and dry. Examination reveals induration and erythema to the left cheek, ear auricle, nose, oriental orthodox, without vesicle formation, fluctuance, drainage. Mild tenderness to palpation. Erythema has spread to the right side of face. HEAD: Atraumatic. Normocephalic. EYES: Pupils equal and round. No scleral icterus. No injection or drainage. ENT: No nasal bleeding or discharge. Mucous membranes pink and moist. Skin as noted above with edema and erythema to the left ear auricle. The external ear canal itself appears normal. Erythema noted internally. NECK: Trachea midline. No JVD. CARDIOVASCULAR: Distant heart sounds. Regular rate and rhythm. No murmur appreciated. RESPIRATORY: No accessory muscle use. Clear to auscultation. Breath sounds equal bilaterally. GASTROINTESTINAL: Abdomen soft, non-tender, nondistended. Hepatic and splenic margins not palpable. MUSCULOSKELETAL: No obvious deformities. 1+ edema in the LEs, R > L. NEUROLOGICAL: Awake and alert. No obvious cranial nerve deficits. Motor grossly within normal limits. Normal speech. PSYCHIATRIC: Appropriate mood and affect; insight and judgment normal. Medications and IVs Current Medications Medications (Trade) Dose Ordered Sig/Nabila Route Start Time Stop Time Status Last Admin (Zyloprim) 100 mg DAILY PO 01/18/17 09:00 01/18/17 08:31 (Ecotrin Ec) 81 mg DAILY PO 01/18/17 09:00 01/18/17 08:32 (Lipitor) 80 mg HS PO 01/17/17 21:00 01/17/17 21:10 (Plavix) 75 mg DAILY PO 01/18/17 09:00 01/18/17 08:32 (Imdur) 30 mg DAILY PO 01/18/17 09:00 01/18/17 08:31 (Hytrin) 2 mg HS PO 01/17/17 21:00 01/17/17 21:10 (Toprol Xl) 100 mg DAILY PO 01/18/17 09:00 01/18/17 08:32 (Remeron) 45 mg HS PO 01/17/17 21:00 01/17/17 21:10 (Protonix) 20 mg DAILY PO 01/18/17 09:00 01/18/17 08:32 (Paxil) 10 mg DAILY PO 01/18/17 09:00 01/18/17 08:32 (NovoLIN N INJ) 20 units BID@08,17 SQ 01/17/17 17:00 01/18/17 08:33 (NovoLOG SUPPLEMENTAL SCALE) 1 ACHS SLIDING SCALE SQ 01/17/17 17:00 (NS Flush) 2 ml UNSCH PRN IV FLUSH 01/17/17 15:15 (NS Flush) 2 ml BID IV FLUSH 01/17/17 21:00 01/18/17 08:33 (Tylenol) 650 mg Q4H PRN PO 01/17/17 15:15 (Zofran Inj) 4 mg Q6H PRN IVP 01/17/17 15:15 (Heparin Inj) 5,000 units Q8H SQ 01/17/17 16:00 01/18/17 08:31 (Tylenol) 650 mg Q6H PRN PO 01/17/17 15:15 (Roxicodone) 10 mg Q4H PRN PO 01/17/17 15:15 (Roxicodone) 5 mg Q4H PRN PO 01/17/17 15:15 (Narcan Inj) 0.4 mg UNSCH PRN IV PUSH 01/17/17 15:15 (Bonnie-Colace) 1 tab BID PO 01/17/17 21:00 01/18/17 08:31 (Pill Splitter) 1 ea UNSCH PRN OTHER 01/17/17 15:15 (D50w (Vial) Inj) 50 ml UNSCH PRN IV PUSH 01/17/17 15:30 (Glucagon Inj) 1 mg UNSCH PRN OTHER 01/17/17 15:30 Pharmacy Profile Note 0 ml @ 0 mls/hr UNSCH OTHER 01/17/17 15:45 Vancomycin HCl 1000 mg/Sodium Chloride 250 ml @ 250 mls/hr Q24H IV 01/18/17 15:00 Miscellaneous Information SPECIFIC LAB TO BE DRAWN:[facility]... ONCE ONCE .XX 01/20/17 14:45 01/20/17 14:46 (SoluMEDROL INJ) 125 mg ONCE ONCE IV PUSH 01/18/17 10:45 01/18/17 10:46 UNV (Benadryl Inj) 50 mg ONCE ONCE IV PUSH 01/18/17 10:45 01/18/17 10:46 UNV (Deltasone) 50 mg DAILY PO 01/19/17 09:00 UNV A/P Assessment and Plan Facial cellulitis Ongoing for 3-4 days prior to admission. Initially involved the left ear, but spread to the left forehead, eyelid, nose, cheek and jaw. No visual impairment or difficulty swallowing or breathing. Received IV vancomycin and Cipro in the ED. CT maxillofacial with no acute abnormalities. Exam reveals erythema and swelling. Appears similar to cellulitis vs an allergic reaction. No vesicles or purulence noted. Discussed with ID, possible psoriasis component. ESR 28, CRP 3. - continue IV vancomycin, renally dosed. D/c Cipro. - pain control with a bowel regimen. - follow up with infectious disease. - blood cultures x 2. - trial of steroids and Benadryl. DM On insulin as an outpt. Well controlled. - hold home PO meds. - resume NPH BID at a lower dose. - insulin sliding scale. CAD S/p CABG x 2 and stents. Has chronic leg swelling. - hold diuretics in light of renal function. - resume other home meds. Acute on chronic renal failure Likely secondary to diuretics. - Hold diuretics and monitor BMP. PPx: Heparin Discharge Planning Awaiting improvement Jos Kurtz DO Jan 18, 2017 10:42
--- NOTE | 2017-01-18 11:13 | PD.ID.CON ---
History of Present Illness Service ID Consult Requested By Reason for Consult Evaluation and Mment of facial cellulitis. 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 Also PMHx of CAD and diabetes who is presenting to the hospital with facial swelling. He says his symptoms started 3 or 4 days ago. He initially noticed swelling and redness around his left ear. He says he has had a severe ear infection last year which was treated with antibiotics. He says his left ear was swollen and eventually that swelling and redness started to spread across his face. He first noticed a go to his left side of his forehead and then it went to the left cheek and nose area. He also says it went down to his jaw on the left side. He describes a sore sensation throughout that side of the face. He rates his pain at a 4 out of 10 in severity. He denies any visual changes. He denies any difficulty with breathing. He says that he is swallowing and eating without problems. He says that the swelling has progressed throughout the day today. He says the pain medication he received in the emergency department did help. He denies any fever. He has not had any episodes of sweating. He did not take any medications for this at home. The patient also mentions that his legs tend to swell, with the right leg swelling more than the left leg. Overnight swelling and erythema spread to involve right side of face. ID consulted for evaluation and MMent of bilateral facial cellulitis. 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) HTN HLP Depression PE DM CKD Urinary incontinence Gout Liver problems Past Surgical History DM CAD Reported Medications I attest I obtained, reviewed or updated home meds and current meds (name, dose , route, freq of meds) Reported Meds & Active Scripts Active Reported Atorvastatin (Atorvastatin Calcium) 80 Mg Tab 80 Mg PO HS Terazosin (Terazosin HCl) 2 Mg Cap 2 Mg PO HS Paxil (Paroxetine HCl) 10 Mg Tab 10 Mg PO DAILY Omeprazole 20 Mg Tab 20 Mg PO DAILY Take 30 minutes before a meal Remeron (Mirtazapine) 45 Mg Tab 45 Mg PO HS Metoprolol Succinate ER 24 HR (Metoprolol Succinate) 100 Mg Tab 100 Mg PO DAILY Metolazone 2.5 Mg Tab 2.5 Mg PO EVERY OTHER DAY Take 1/2hr before furosemide Claritin (Loratadine) 10 Mg Tablet 10 Mg PO DAILY Lisinopril 40 Mg Tab 40 Mg PO DAILY Isosorbide Mononitrate ER (Isosorbide Mononitrate) 60 Mg Tab 30 Mg PO DAILY Novolin N Inj (Insulin Human NPH) 100 Unit/Ml Inj 50 Units SQ DAILY IN THE AM Novolin N Inj (Insulin Human NPH) 100 Unit/Ml Inj 55 Units SQ DAILY IN THE PM Glucotrol (Glipizide) 10 Mg Tab 10 Mg PO BID Take 30 minutes before a meal Lasix (Furosemide) 40 Mg Tab 40 Mg PO DAILY Fish Oil 1000 mg ([place]-3 Fatty Acids) 1 Cap Cap 1,000 Mg PO BID Diclofenac Topical 1% Gel 1 Applic TOPICAL QID Vitamin B-12 (Cyanocobalamin) 1,000 Mcg Tab 1,000 Mcg PO HS Plavix (Clopidogrel Bisulfate) 75 Mg Tab 75 Mg PO DAILY Aspirin Adult Low Strength (Aspirin) 81 Mg Tabdr 81 Mg PO DAILY Zyloprim (Allopurinol) 100 Mg Tab 100 Mg PO DAILY Active Ordered Medications Current Medications Medications (Trade) Dose Ordered Sig/Nabila Route Start Time Stop Time Status Last Admin (Zyloprim) 100 mg DAILY PO 01/18/17 09:00 01/18/17 08:31 (Ecotrin Ec) 81 mg DAILY PO 01/18/17 09:00 01/18/17 08:32 (Lipitor) 80 mg HS PO 01/17/17 21:00 01/17/17 21:10 (Plavix) 75 mg DAILY PO 01/18/17 09:00 01/18/17 08:32 (Imdur) 30 mg DAILY PO 01/18/17 09:00 01/18/17 08:31 (Hytrin) 2 mg HS PO 01/17/17 21:00 01/17/17 21:10 (Toprol Xl) 100 mg DAILY PO 01/18/17 09:00 01/18/17 08:32 (Remeron) 45 mg HS PO 01/17/17 21:00 01/17/17 21:10 (Protonix) 20 mg DAILY PO 01/18/17 09:00 01/18/17 08:32 (Paxil) 10 mg DAILY PO 01/18/17 09:00 01/18/17 08:32 (NovoLOG SUPPLEMENTAL SCALE) 1 ACHS SLIDING SCALE SQ 01/17/17 17:00 (NS Flush) 2 ml UNSCH PRN IV FLUSH 01/17/17 15:15 (NS Flush) 2 ml BID IV FLUSH 01/17/17 21:00 01/18/17 08:33 (Tylenol) 650 mg Q4H PRN PO 01/17/17 15:15 (Zofran Inj) 4 mg Q6H PRN IVP 01/17/17 15:15 (Heparin Inj) 5,000 units Q8H SQ 01/17/17 16:00 01/18/17 08:31 (Tylenol) 650 mg Q6H PRN PO 01/17/17 15:15 (Roxicodone) 10 mg Q4H PRN PO 01/17/17 15:15 (Roxicodone) 5 mg Q4H PRN PO 01/17/17 15:15 (Narcan Inj) 0.4 mg UNSCH PRN IV PUSH 01/17/17 15:15 (Bonnie-Colace) 1 tab BID PO 01/17/17 21:00 01/18/17 08:31 (Pill Splitter) 1 ea UNSCH PRN OTHER 01/17/17 15:15 (D50w (Vial) Inj) 50 ml UNSCH PRN IV PUSH 01/17/17 15:30 (Glucagon Inj) 1 mg UNSCH PRN OTHER 01/17/17 15:30 Pharmacy Profile Note 0 ml @ 0 mls/hr UNSCH OTHER 01/17/17 15:45 Vancomycin HCl 1000 mg/Sodium Chloride 250 ml @ 250 mls/hr Q24H IV 01/18/17 15:00 Miscellaneous Information SPECIFIC LAB TO BE DRAWN:[facility]... ONCE ONCE .XX 01/20/17 14:45 01/20/17 14:46 (Deltasone) 50 mg DAILY PO 01/19/17 09:00 (NovoLIN N INJ) 15 units BID@08,17 SQ 01/18/17 17:00 Family History Reviewed and NC to current ID problems. Social History The pt quit smoking 30 years ago. He drinks beer socially. Physical Exam Vital Signs Vital Signs Date Time Temp Pulse Resp B/P (MAP) Pulse Ox O2 Delivery O2 Flow Rate FiO2 01/18/17 08:00 96.2 64 18 144/67 (92) 91 01/18/17 00:00 97.2 66 18 115/59 (77) 91 01/17/17 20:00 97.7 69 18 120/56 (77) 93 01/17/17 17:54 62 18 135/69 (91) 94 Nasal Cannula 2.00 01/17/17 15:02 62 18 125/63 (83) 95 Nasal Cannula 2.00 01/17/17 14:55 18 01/17/17 12:37 67 18 159/76 (103) 92 Room Air 01/17/17 11:39 18 93 Room Air Physical Exam GENERAL: This is a well-nourished, well-developed patient, in no apparent distress. SKIN: No rashes, ecchymoses or lesions. Cool and dry. HEAD: Atraumatic. Normocephalic. No temporal or scalp tenderness. EYES: Pupils equal round and reactive. Extraocular motions intact. No scleral icterus. No injection or drainage. Face: Bilateral facial erythema, induration. Induration most marked on the pinna of the left external ear. Involves bilateral cheeks and to some extent the forehead right above the eyebrows. His scalp, post auricular area has areas of psoriatic patches and he was scratching off and on during my conversation. ENT: Nose without bleeding, purulent drainage or septal hematoma. Throat without erythema, tonsillar hypertrophy or exudate. Uvula midline. Airway patent. NECK: Trachea midline. Supple, nontender, no meningeal signs. CARDIOVASCULAR: Regular rate and rhythm without murmurs, gallops, or rubs. RESPIRATORY: Clear to auscultation. Breath sounds equal bilaterally. No wheezes , rales, or rhonchi. GASTROINTESTINAL: Abdomen soft, non-tender, nondistended. MUSCULOSKELETAL: Extremities without clubbing, cyanosis, or edema. NEUROLOGICAL: Awake and alert. Non focal Psych cooperative IV line sites with no e.o infection. Laboratory Laboratory Tests Test 01/17/17 11:25 01/17/17 11:30 01/17/17 14:25 01/18/17 06:30 White Blood Count 6.9 6.5 Red Blood Count 4.80 4.69 Hemoglobin 14.2 13.9 Hematocrit 42.7 42.3 Mean Corpuscular Volume 88.9 90.2 Mean Corpuscular Hemoglobin 29.5 29.7 Mean Corpuscular Hemoglobin Concent 33.2 32.9 Red Cell Distribution Width 15.3 15.6 Platelet Count 180 177 Mean Platelet Volume 7.6 7.5 Neutrophils (%) (Auto) 69.6 63.7 Lymphocytes (%) (Auto) 14.9 16.4 Monocytes (%) (Auto) 11.9 14.0 Eosinophils (%) (Auto) 3.1 5.4 Basophils (%) (Auto) 0.5 0.5 Neutrophils # (Auto) 4.8 4.1 Lymphocytes # (Auto) 1.0 1.1 Monocytes # (Auto) 0.8 0.9 Eosinophils # (Auto) 0.2 0.3 Basophils # (Auto) 0.0 0.0 CBC Comment DIFF FINAL DIFF FINAL Differential Comment Prothrombin Time 10.0 Prothromb Time International Ratio 0.9 Activated Partial Thromboplast Time 25.3 Blood Urea Nitrogen 54 43 Creatinine 2.29 2.08 Random Glucose 235 96 Total Protein 6.8 6.2 Albumin 3.1 2.7 Calcium Level 8.6 8.6 Alkaline Phosphatase 69 63 Aspartate Amino Transf (AST/SGOT) 26 26 Alanine Aminotransferase (ALT/SGPT) 42 39 Total Bilirubin 0.8 0.7 Sodium Level 136 141 Potassium Level 4.5 4.3 Chloride Level 101 105 Carbon Dioxide Level 29.0 29.6 Anion Gap 6 6 Estimat Glomerular Filtration Rate 28 32 Lactic Acid Level 1.3 Erythrocyte Sedimentation Rate 28 C-Reactive Protein 3.00 Date/Time Source Procedure Growth Status 01/17/17 11:30 Blood Peripheral Aerobic Blood Culture - Preliminary NO GROWTH IN 1 DAY Resulted 01/17/17 11:30 Blood Peripheral Anaerobic Blood Culture - Preliminary NO GROWTH IN 1 DAY Resulted Result Diagram: 01/18/1730 01/18/1730 Imaging Last Impressions Maxillofacial CT 01/17/17 0000 Signed Impressions: Service Date/Time: Tuesday, January 17, 2017 12:55 - CONCLUSION: 1. Negative examination. Thierry Louis MD Chest X-Ray 01/17/17 0000 Signed Impressions: Service Date/Time: Tuesday, January 17, 2017 14:47 - CONCLUSION: 1. Cardiomegaly. The lungs are clear. Stable compared to prior dated 01/26/15. Thierry Louis MD Assessment and Plan Assessment and Plan Bilateral facial cellulitis Left ear pinna cellulitis. Psoriasis Recs Continue Vanco IV DC Cipro Steroids oral or IV inflammation component. Will follow along ayanna Herrera. Tianna Winter MD Jan 18, 2017 11:13
[2017-01-18] MEDS ORDERED: methylPREDNISolone SOD SUCC 125 MG/2 ML VIAL IV PUSH ONE (11:15)
[2017-01-18] MEDS ORDERED: diphenhydrAMINE HCL 50 MG/ML VIAL IV PUSH ONE (11:15)
[2017-01-18 12:00] VITALS: BP 138/70; PULSE 64; RESP 18; TEMP 96.5; O2SAT 90
[2017-01-18] MEDS ORDERED: VANCOMYCIN 1,000 MG/NS 250 ML IV SCH ×2 (15:00)
[2017-01-18 16:00] VITALS: BP 175/83; PULSE 74; RESP 18; TEMP 95.9; O2SAT 92
[2017-01-18 20:00] VITALS: BP 161/70; PULSE 67; RESP 18; TEMP 97.1; O2SAT 93
[2017-01-18] MEDS: TERAZOSIN HCL 1 MG CAP PO SCH (21:34)
[2017-01-18] MEDS: ATORVASTATIN 80 MG TAB PO SCH (21:34)
[2017-01-18] MEDS: MIRTAZAPINE 15 MG TAB PO SCH (21:34)
[2017-01-19] VITALS: BP 146/66; PULSE 64; RESP 18; TEMP 97.3; O2SAT 93
[2017-01-19 08:00] VITALS: BP 184/80; PULSE 55; RESP 17; TEMP 97.5; O2SAT 96
[2017-01-19] MEDS: INSULIN HUMAN NPH 1,000 UNITS/10 ML VIAL SQ SCH (08:05)
[2017-01-19] MEDS: SODIUM CHLORIDE 0.9% FLUSH 10 ML FLUSH IV FLUSH SCH (08:05)
[2017-01-19] MEDS: HEPARIN SODIUM - SQ 10,000 UNITS/ML VIAL SQ SCH (08:05)
[2017-01-19] MEDS: INSULIN ASPART SUPPLEMENTAL SCALE SQ SCH ×2 (08:05→12:14)
[2017-01-19] MEDS: ASPIRIN EC 81 MG TABEC PO SCH (08:06)
[2017-01-19] MEDS: METOPROLOL SUCCINATE 50 MG EXTENDED RELEASE TAB PO SCH (08:06)
[2017-01-19] MEDS: PARoxetine HCL 20 MG TAB PO SCH (08:06)
[2017-01-19] MEDS: DOCUSATE SODIUM 50 MG/SENNA 8.6 MG TAB PO SCH (08:06)
[2017-01-19] MEDS: ALLOPURINOL 100 MG TAB PO SCH (08:06)
[2017-01-19] MEDS: ISOSORBIDE MONONITRATE 30 MG TAB PO SCH (08:06)
[2017-01-19] MEDS: PANTOPRAZOLE SOD 20 MG DELAYED RELEASE TAB PO SCH (08:06)
[2017-01-19] MEDS: CLOPIDOGREL 75 MG TAB PO SCH (08:07)
[2017-01-19] MEDS ORDERED: predniSONE 50 MG TAB PO SCH (09:00)
[2017-01-19 09:01] LABS: MAGNESIUM 2.3 MG/DL (1.5-2.5); POTASSIUM 4.4 MEQ/L (3.5-5.1)
--- NOTE | 2017-01-19 10:31 | HHI.IDPN ---
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 Also PMHx of CAD and diabetes who is presenting to the hospital with facial swelling. He says his symptoms started 3 or 4 days ago. He initially noticed swelling and redness around his left ear. He says he has had a severe ear infection last year which was treated with antibiotics. He says his left ear was swollen and eventually that swelling and redness started to spread across his face. He first noticed a go to his left side of his forehead and then it went to the left cheek and nose area. He also says it went down to his jaw on the left side. He describes a sore sensation throughout that side of the face. He rates his pain at a 4 out of 10 in severity. He denies any visual changes. He denies any difficulty with breathing. He says that he is swallowing and eating without problems. He says that the swelling has progressed throughout the day today. He says the pain medication he received in the emergency department did help. He denies any fever. He has not had any episodes of sweating. He did not take any medications for this at home. The patient also mentions that his legs tend to swell, with the right leg swelling more than the left leg. Overnight swelling and erythema spread to involve right side of face. ID consulted for evaluation and MMent of bilateral facial cellulitis. Overnight events reviewed. No fever No rash No diarrhea facial puffiness reduced, ear pinna with erythema (reduced induration and tense skin). Wrinkling of skin noted on face. Antibiotics Vanco IV Lines Line sites with no e.o infection. Past Medical History reviewed Allergies: Coded Allergies: No Known Allergies (Verified , 01/17/17) Objective . Vital Signs Date Time Temp Pulse Resp B/P (MAP) Pulse Ox O2 Delivery O2 Flow Rate FiO2 01/19/17 08:00 97.5 55 17 184/80 (114) 96 01/19/17 00:00 97.3 64 18 146/66 (92) 93 01/18/17 20:00 97.1 67 18 161/70 (100) 93 01/18/17 16:00 95.9 74 18 175/83 (113) 92 01/18/17 12:00 96.5 64 18 138/70 (92) 90 . Laboratory Tests Test 01/17/17 11:25 01/17/17 14:25 01/18/17 06:30 White Blood Count 6.9 TH/MM3 6.5 TH/MM3 Red Blood Count 4.80 MIL/MM3 4.69 MIL/MM3 Hemoglobin 14.2 GM/DL 13.9 GM/DL Hematocrit 42.7 % 42.3 % Mean Corpuscular Volume 88.9 FL 90.2 FL Mean Corpuscular Hemoglobin 29.5 PG 29.7 PG Mean Corpuscular Hemoglobin Concent 33.2 % 32.9 % Red Cell Distribution Width 15.3 % 15.6 % Platelet Count 180 TH/MM3 177 TH/MM3 Mean Platelet Volume 7.6 FL 7.5 FL Neutrophils (%) (Auto) 69.6 % 63.7 % Lymphocytes (%) (Auto) 14.9 % 16.4 % Monocytes (%) (Auto) 11.9 % 14.0 % Eosinophils (%) (Auto) 3.1 % 5.4 % Basophils (%) (Auto) 0.5 % 0.5 % Neutrophils # (Auto) 4.8 TH/MM3 4.1 TH/MM3 Lymphocytes # (Auto) 1.0 TH/MM3 1.1 TH/MM3 Monocytes # (Auto) 0.8 TH/MM3 0.9 TH/MM3 Eosinophils # (Auto) 0.2 TH/MM3 0.3 TH/MM3 Basophils # (Auto) 0.0 TH/MM3 0.0 TH/MM3 CBC Comment DIFF FINAL DIFF FINAL Differential Comment Erythrocyte Sedimentation Rate 28 mm/hr Laboratory Tests Test 01/17/17 11:25 01/17/17 11:30 01/17/17 14:25 01/18/17 06:30 Blood Urea Nitrogen 54 MG/DL 43 MG/DL Creatinine 2.29 MG/DL 2.08 MG/DL Random Glucose 235 MG/DL 96 MG/DL Total Protein 6.8 GM/DL 6.2 GM/DL Albumin 3.1 GM/DL 2.7 GM/DL Calcium Level 8.6 MG/DL 8.6 MG/DL Alkaline Phosphatase 69 U/L 63 U/L Aspartate Amino Transf (AST/SGOT) 26 U/L 26 U/L Alanine Aminotransferase (ALT/SGPT) 42 U/L 39 U/L Total Bilirubin 0.8 MG/DL 0.7 MG/DL Sodium Level 136 MEQ/L 141 MEQ/L Potassium Level 4.5 MEQ/L 4.3 MEQ/L Chloride Level 101 MEQ/L 105 MEQ/L Carbon Dioxide Level 29.0 MEQ/L 29.6 MEQ/L Anion Gap 6 MEQ/L 6 MEQ/L Estimat Glomerular Filtration Rate 28 ML/MIN 32 ML/MIN Lactic Acid Level 1.3 mmol/L C-Reactive Protein 3.00 MG/DL Test 01/19/17 07:39 Blood Urea Nitrogen 41 MG/DL Creatinine 2.18 MG/DL Random Glucose 233 MG/DL Calcium Level 9.3 MG/DL Magnesium Level 2.3 MG/DL Sodium Level 140 MEQ/L Potassium Level 4.4 MEQ/L Chloride Level 104 MEQ/L Carbon Dioxide Level 30.0 MEQ/L Anion Gap 6 MEQ/L Estimat Glomerular Filtration Rate 30 ML/MIN Microbiology Date/Time Source Procedure Growth Status 01/17/17 11:30 Blood Peripheral Aerobic Blood Culture - Preliminary NO GROWTH IN 1 DAY Resulted 01/17/17 11:30 Blood Peripheral Anaerobic Blood Culture - Preliminary NO GROWTH IN 1 DAY Resulted 01/17/17 11:25 Blood Peripheral Aerobic Blood Culture - Preliminary NO GROWTH IN 1 DAY Resulted 01/17/17 11:25 Blood Peripheral Anaerobic Blood Culture - Preliminary NO GROWTH IN 1 DAY Resulted Imaging Last Impressions Maxillofacial CT 01/17/17 0000 Signed Impressions: Service Date/Time: Tuesday, January 17, 2017 12:55 - CONCLUSION: 1. Negative examination. Thierry Louis MD Chest X-Ray 01/17/17 0000 Signed Impressions: Service Date/Time: Tuesday, January 17, 2017 14:47 - CONCLUSION: 1. Cardiomegaly. The lungs are clear. Stable compared to prior dated 01/26/15. Thierry Louis MD Physical Exam GENERAL: This is a well-nourished, well-developed patient, in no apparent distress. SKIN: No rashes, ecchymoses or lesions. Cool and dry. HEAD: Atraumatic. Normocephalic. No temporal or scalp tenderness. EYES: Pupils equal round and reactive. Extraocular motions intact. No scleral icterus. No injection or drainage. Face: Bilateral facial erythema, induration much reduced. Induration on the pinna of the left external ear much reduced. ENT: Nose without bleeding, purulent drainage or septal hematoma. Throat without erythema, tonsillar hypertrophy or exudate. Uvula midline. Airway patent. NECK: Trachea midline. Supple, nontender, no meningeal signs. CARDIOVASCULAR: Regular rate and rhythm without murmurs, gallops, or rubs. RESPIRATORY: Clear to auscultation. Breath sounds equal bilaterally. No wheezes , rales, or rhonchi. GASTROINTESTINAL: Abdomen soft, non-tender, nondistended. MUSCULOSKELETAL: Extremities without clubbing, cyanosis, or edema. NEUROLOGICAL: Awake and alert. Non focal Psych cooperative IV line sites with no e.o infection. Assessment & Plan Remarks Bilateral facial cellulitis Left ear pinna cellulitis. Psoriasis Recs DC Vanco IV Oral steroids short taper. ok to discharge from ID standpoint on oral doxy 100 mg po bid x 7 more days. ayanna Herrera. Will sign off please call back if any change in clinical condition. Tianna Winetr MD Jan 19, 2017 10:31
[2017-01-19] MEDS ORDERED: DOXY100C PO (10:38)
[2017-01-19] MEDS ORDERED: PRED50 PO (10:43)
--- NOTE | 2017-01-19 10:44 | HHI.DCPOC ---
Discharge Care Plan Diagnosis: (1) Facial cellulitis (2) Acute kidney injury (3) Diabetes Goals to Promote Your Health * To prevent worsening of your condition and complications * To maintain your health at the optimal level Directions to Meet Your Goals Take your medications as prescribed Follow your dietary instruction Follow activity as directed Keep your appointments as scheduled Take your immunizations and boosters as scheduled If your symptoms worsen call your PCP, if no PCP go to Urgent Care Center or Emergency Room Smoking is Dangerous to Your Health. Avoid second hand smoke Call the 24-hour hour crisis hotline for domestic abuse at Jos Kurtz DO Jan 19, 2017 10:44
[2017-01-19] MEDS ORDERED: LISINOPRIL 20 MG TAB PO SCH (10:45)
--- NOTE | 2017-01-19 10:49 | HHI.PR ---
Subjective Remarks Patient was feeling a lot better and wanted to go home. He said the swelling was much improved. He said that his blood pressure was high this morning because he was walking around right before they took it. No acute complaints. Discussed with nursing. Objective Vitals Vital Signs Date Time Temp Pulse Resp B/P (MAP) Pulse Ox O2 Delivery O2 Flow Rate FiO2 01/19/17 08:00 97.5 55 17 184/80 (114) 96 01/19/17 00:00 97.3 64 18 146/66 (92) 93 01/18/17 20:00 97.1 67 18 161/70 (100) 93 01/18/17 16:00 95.9 74 18 175/83 (113) 92 01/18/17 12:00 96.5 64 18 138/70 (92) 90 I/O 01/18/17 01/18/17 01/18/17 01/19/17 01/19/17 01/19/17 07:00 15:00 23:00 07:00 15:00 23:00 Intake Total 200 ml 1550 ml 240 ml Balance 200 ml 1550 ml 240 ml Intake Oral 1300 ml 240 ml IV Total 200 ml 250 ml # Voids 5 3 # Bowel Movements 1 0 Result Diagram: 01/18/17 0630 01/19/17 0739 Imaging Last Impressions Maxillofacial CT 01/17/17 0000 Signed Impressions: Service Date/Time: Tuesday, January 17, 2017 12:55 - CONCLUSION: 1. Negative examination. Thierry Louis MD Chest X-Ray 01/17/17 0000 Signed Impressions: Service Date/Time: Tuesday, January 17, 2017 14:47 - CONCLUSION: 1. Cardiomegaly. The lungs are clear. Stable compared to prior dated 01/26/15. Thierry Louis MD Objective Remarks GENERAL: Well-developed, well-nourished male in no acute distress. SKIN: Warm and dry. Examination reveals erythema to the left cheek, ear auricle , nose, holiness, without vesicle formation, fluctuance, drainage. Erythema has spread to the right side of face. Swelling is improved. HEAD: Atraumatic. Normocephalic. EYES: Pupils equal and round. No scleral icterus. No injection or drainage. ENT: No nasal bleeding or discharge. Mucous membranes pink and moist. Skin as noted above with edema and erythema to the left ear auricle. The external ear canal itself appears normal. Erythema noted internally. NECK: Trachea midline. No JVD. CARDIOVASCULAR: Distant heart sounds. Regular rate and rhythm. No murmur appreciated. RESPIRATORY: No accessory muscle use. Clear to auscultation. Breath sounds equal bilaterally. GASTROINTESTINAL: Abdomen soft, non-tender, nondistended. Hepatic and splenic margins not palpable. MUSCULOSKELETAL: No obvious deformities. 1+ edema in the LEs, R > L. NEUROLOGICAL: Awake and alert. No obvious cranial nerve deficits. Motor grossly within normal limits. Normal speech. PSYCHIATRIC: Appropriate mood and affect; insight and judgment normal. Medications and IVs Current Medications Medications (Trade) Dose Ordered Sig/Nabila Route Start Time Stop Time Status Last Admin (Zyloprim) 100 mg DAILY PO 01/18/17 09:00 01/19/17 08:06 (Ecotrin Ec) 81 mg DAILY PO 01/18/17 09:00 01/19/17 08:06 (Lipitor) 80 mg HS PO 01/17/17 21:00 01/18/17 21:34 (Plavix) 75 mg DAILY PO 01/18/17 09:00 01/19/17 08:07 (Imdur) 30 mg DAILY PO 01/18/17 09:00 01/19/17 08:06 (Hytrin) 2 mg HS PO 01/17/17 21:00 01/18/17 21:34 (Toprol Xl) 100 mg DAILY PO 01/18/17 09:00 01/19/17 08:06 (Remeron) 45 mg HS PO 01/17/17 21:00 01/18/17 21:34 (Protonix) 20 mg DAILY PO 01/18/17 09:00 01/19/17 08:06 (Paxil) 10 mg DAILY PO 01/18/17 09:00 01/19/17 08:06 (NovoLOG SUPPLEMENTAL SCALE) 1 ACHS SLIDING SCALE SQ 01/17/17 17:00 01/19/17 08:05 (NS Flush) 2 ml UNSCH PRN IV FLUSH 01/17/17 15:15 (NS Flush) 2 ml BID IV FLUSH 01/17/17 21:00 01/19/17 08:05 (Tylenol) 650 mg Q4H PRN PO 01/17/17 15:15 (Zofran Inj) 4 mg Q6H PRN IVP 01/17/17 15:15 (Heparin Inj) 5,000 units Q8H SQ 01/17/17 16:00 01/19/17 08:05 (Tylenol) 650 mg Q6H PRN PO 01/17/17 15:15 (Roxicodone) 10 mg Q4H PRN PO 01/17/17 15:15 (Roxicodone) 5 mg Q4H PRN PO 01/17/17 15:15 01/18/17 21:35 (Narcan Inj) 0.4 mg UNSCH PRN IV PUSH 01/17/17 15:15 ([place]-Colace) 1 tab BID PO 01/17/17 21:00 01/19/17 08:06 (Pill Splitter) 1 ea UNSCH PRN OTHER 01/17/17 15:15 (D50w (Vial) Inj) 50 ml UNSCH PRN IV PUSH 01/17/17 15:30 (Glucagon Inj) 1 mg UNSCH PRN OTHER 01/17/17 15:30 Pharmacy Profile Note 0 ml @ 0 mls/hr UNSCH OTHER 01/17/17 15:45 Miscellaneous Information SPECIFIC LAB TO BE DRAWN:[facility]... ONCE ONCE .XX 01/20/17 14:45 01/20/17 14:46 (Deltasone) 50 mg DAILY PO 01/19/17 09:00 01/19/17 08:06 (NovoLIN N INJ) 15 units BID@08,17 SQ 01/18/17 17:00 01/19/17 08:05 Vancomycin HCl 1500 mg/Sodium Chloride 515 ml @ 250 mls/hr ONCE ONCE IV 01/19/17 12:00 01/19/17 14:03 (Prinivil) 20 mg DAILY PO 01/19/17 10:45 UNV A/P Assessment and Plan Facial cellulitis Ongoing for 3-4 days prior to admission. Initially involved the left ear, but spread to the left forehead, eyelid, nose, cheek and jaw. No visual impairment or difficulty swallowing or breathing. Received IV vancomycin and Cipro in the ED. CT maxillofacial with no acute abnormalities. Exam reveals erythema and swelling. Appears similar to cellulitis vs an allergic reaction. No vesicles or purulence noted. Discussed with ID, possible psoriasis component. ESR 28, CRP 3. - complete a course of doxycycline per ID. - pain control with a bowel regimen. - blood cultures x 2. NGTD. - trial of steroids and Benadryl. Improved. Continue 3 more days of prednisone 50 mg daily. Benadryl as needed. - follow up with dermatology and PCP. DM On insulin as an outpt. - hold home PO meds. - resume NPH BID at a lower dose. - insulin sliding scale. - resume home regimen at discharge. CAD S/p CABG x 2 and stents. Has chronic leg swelling. - hold diuretics in light of renal function. - resume other home meds. Acute on chronic renal failure Likely secondary to diuretics. - Hold diuretics and monitor BMP. Stable. Resume lisinopril. HTN Lisinopril and diuretics were held. - resume lisinopril. - follow BMP and follow-up with PCP. PPx: Heparin Discharge Planning D/c home Jos Kurtz DO Jan 19, 2017 10:49
[2017-01-19] MEDS ORDERED: VANCOMYCIN INJ 1,500 MG in SODIUM CHLORID 0.9% 500 ML INJ 500 ML IV ONE (12:00)
[2017-01-19 13:08] VITALS: O2SAT 96
[2017-01-20] MEDS ORDERED: PHARMACY ORDERED LAB ONE (14:45)
== END 2017-01-19 13:08 | disposition home or self-care (01) | DRG 603 ==
LOC: NEPC 10:23 → NEDA 14:04 → OBSVTOIN 15:17 → N07A 18:21
PROVIDERS: ADMIT Hospitalist; ATTEND Hospitalist
DX: L03.211 Cellulitis of face (principal); N17.9 Acute kidney failure, unspecified; E11.22 Type 2 diabetes mellitus with diabetic chronic kidney disease; I50.9 Heart failure, unspecified; I13.0 Hypertensive heart and chronic kidney disease with heart failure and stage 1 through stage 4 chronic kidney disease, or unspecified chronic kidney disease; I25.10 Atherosclerotic heart disease of native coronary artery without angina pectoris; N18.9 Chronic kidney disease, unspecified; M19.90 Unspecified osteoarthritis, unspecified site; F41.9 Anxiety disorder, unspecified; F32.9 Major depressive disorder, single episode, unspecified; L40.9 Psoriasis, unspecified; E78.5 Hyperlipidemia, unspecified; H60.12 Cellulitis of left external ear; M10.9 Gout, unspecified; T50.2X5A Adverse effect of carbonic-anhydrase inhibitors, benzothiadiazides and other diuretics, initial encounter; H91.90 Unspecified hearing loss, unspecified ear; F43.10 Post-traumatic stress disorder, unspecified; I25.2 Old myocardial infarction; Z95.5 Presence of coronary angioplasty implant and graft; Z86.711 Personal history of pulmonary embolism; Z95.1 Presence of aortocoronary bypass graft; Z79.4 Long term (current) use of insulin; I69.319 Unspecified symptoms and signs involving cognitive functions following cerebral infarction; Z87.891 Personal history of nicotine dependence
CPT/HCPCS: 70486; 71010; 80048; 80053; 80202; 82948; 83605; 83735; 85025; 85610; 85652; 85730; 86140; 87040; 96361; 96374; 96375; J0744; J1200; J1644; J1815; J2270; J2405; J2930; J3370; J7030; J7040; J7050; J7512

== ENCOUNTER 2017-03-11 10:11 | Emergency (ER) | payer OTHER ==
[~2017-03-11 10:11] MED LIST changes: -ASPI1TAB91 PO; +ASPI81TA16 PO; +ATOR80TA45 PO; -CLIN1CAP6 PO; -DICL1GEL7 TOPICAL; +DOXY100C PO; -FURO1TAB60 PO; -IPRAAER INH; -METO100T9 PO; +METO1TAB43 PO; -METO2.5T PO; -OMEP20TA PO; +OMEP20TA93 PO; -PAXI10TA2 PO; +PAXI10TA8 PO; +PRED50 PO; -ROSU40 PO
[2017-03-11 10:19] VITALS: BP 184/87; PULSE 64; RESP 16; TEMP 98.4; O2SAT 98
--- NOTE | 2017-03-11 10:55 | PD ---
HPI Chief Complaint: Diabetic Time Seen by Provider: 10:43 Travel History International Travel<30 days: No Contact w/Intl Traveler<30days: No Traveled to known affect area: No History of Present Illness HPI [facility]. when nurse noticed he didn't look good, because he was sweaty....accucheck low on glucometer...given glucopaste by [facility], then transported to [facility] [place]...upon speaking with patient, he states that he took his diabetic pills and insulin without eating breakfast PFSH Past Medical History Hx Anticoagulant Therapy: Yes (PLAVIX) Arthritis: Yes Anxiety: Yes Depression: Yes Heart Rhythm Problems: Yes Cancer: No Cardiac Catheterization: Yes (TRIPLE BYPASS) Cardiovascular Problems: Yes High Cholesterol: Yes Chest Pain: Yes Congestive Heart Failure: Yes Cerebrovascular Accident: Yes Coronary Artery Disease: Yes Diabetes: Yes Patient Takes Glucophage: No Diminished Hearing: Yes (HEARING AIDS) Deep Vein Thrombosis: Yes (PE'S) Endocrine: Yes Gastrointestinal Disorders: Yes (PT HAS HERNIA, NO REPAIR) Gout: Yes Hiatal Hernia: No Hypertension: Yes Immune Disorder: No Insomnia: Yes Musculoskeletal: Yes Neurologic: No Psychiatric: Yes Reproductive: No Respiratory: No Immunizations Current: No Myocardial Infarction: Yes Thyroid Disease: Yes Tetanus Vaccination: < 5 Years Influenza Vaccination: Yes Past Surgical History Abdominal Surgery: Yes (hernia repair) Cardiac Surgery: Yes (cabage ) Coronary Artery Bypass Graft: Yes (TWICE,FIRST 3 VESSELS AND 2ND HAD 2 VESSELS) Coronary Stent: Yes Oral Surgery: Yes (TEETH EXTRACTED SURGICALLY) Other Surgery: Yes Social History Alcohol Use: Yes ("2-3 BEERS PER DAY") Tobacco Use: No (QUIT 30 YEARS AGO) Substance Use: No Allergies-Medications (Allergen,Severity, Reaction): Coded Allergies: No Known Allergies (Verified Adverse Reaction, Unknown, 03/11/17) Reported Meds & Prescriptions Reported Meds & Active Scripts Active Prednisone 50 Mg Tab 50 Mg PO DAILY 5 Days Take first dose 01/20. Reported Atorvastatin (Atorvastatin Calcium) 80 Mg Tab 80 Mg PO HS Terazosin (Terazosin HCl) 2 Mg Cap 2 Mg PO HS Paxil (Paroxetine HCl) 10 Mg Tab 10 Mg PO DAILY Omeprazole 20 Mg Tab 20 Mg PO DAILY Take 30 minutes before a meal Remeron (Mirtazapine) 45 Mg Tab 45 Mg PO HS Metoprolol Succinate ER 24 HR (Metoprolol Succinate) 100 Mg Tab 100 Mg PO DAILY Claritin (Loratadine) 10 Mg Tablet 10 Mg PO DAILY Lisinopril 40 Mg Tab 40 Mg PO DAILY Isosorbide Mononitrate ER (Isosorbide Mononitrate) 60 Mg Tab 30 Mg PO DAILY Novolin N Inj (Insulin Human NPH) 100 Unit/Ml Inj 50 Units SQ DAILY IN THE AM Novolin N Inj (Insulin Human NPH) 100 Unit/Ml Inj 55 Units SQ DAILY IN THE PM Glucotrol (Glipizide) 10 Mg Tab 10 Mg PO BID Take 30 minutes before a meal Fish Oil 1000 mg ([place]-3 Fatty Acids) 1 Cap Cap 1,000 Mg PO BID Vitamin B-12 (Cyanocobalamin) 1,000 Mcg Tab 1,000 Mcg PO HS Plavix (Clopidogrel Bisulfate) 75 Mg Tab 75 Mg PO DAILY Aspirin Adult Low Strength (Aspirin) 81 Mg Tabdr 81 Mg PO DAILY Zyloprim (Allopurinol) 100 Mg Tab 100 Mg PO DAILY Review of Systems Except as stated in HPI: all other systems reviewed are Neg Physical Exam Narrative GENERAL: SKIN: Warm and dry. HEAD: Atraumatic. Normocephalic. EYES: Pupils equal and round. No scleral icterus. No injection or drainage. ENT: No nasal bleeding or discharge. Mucous membranes pink and moist. NECK: Trachea midline. No JVD. CARDIOVASCULAR: Regular rate and rhythm. RESPIRATORY: No accessory muscle use. Clear to auscultation. Breath sounds equal bilaterally. GASTROINTESTINAL: Abdomen soft, non-tender, nondistended. MUSCULOSKELETAL: Extremities without clubbing, cyanosis, or edema. No obvious deformities. NEUROLOGICAL: Awake and alert. No obvious cranial nerve deficits. Motor grossly within normal limits. Five out of 5 muscle strength in the arms and legs. Normal speech. PSYCHIATRIC: Appropriate mood and affect; insight and judgment normal. Data Data Last Documented VS Vital Signs Date Time Temp Pulse Resp B/P (MAP) Pulse Ox O2 Delivery O2 Flow Rate FiO2 03/11/17 11:00 62 18 181/84 (116) 95 Room Air 03/11/17 10:19 98.4 Orders Orders Diet 1999 Ada Cons Carb (03/11/17 Lunch) MDM Medical Decision Making Medical Screen Exam Complete: Yes Emergency Medical Condition: Yes Medical Record Reviewed: Yes Differential Diagnosis hypoglycemia due to skipping meals Narrative Course patient denies feeling any morris/cp/abdpain/n/v/d/flank pain/no lateralizing weakness/no weakness at all/ Diagnosis Primary Impression: Hypoglycemia associated with diabetes Patient Instructions: General Instructions, Hypoglycemia in a Person with Diabetes (ED) Disposition: 01 DISCHARGE HOME Condition: Stable Kendrick Han MD Mar 11, 2017 10:55
[2017-03-11 11:00] VITALS: BP 181/84; PULSE 62; RESP 18; O2SAT 95
== END 2017-03-11 12:58 | disposition home or self-care (01) ==
LOC: NEPD 10:11
DX: E11.649 Type 2 diabetes mellitus with hypoglycemia without coma (principal); I10 Essential (primary) hypertension; I50.9 Heart failure, unspecified; E78.00 Pure hypercholesterolemia, unspecified; Z79.01 Long term (current) use of anticoagulants
CPT/HCPCS: 99283